=== PATIENT | female | born 1960 ===

== ENCOUNTER 2017-03-06 01:03 | Observation (INO) | payer OTHER ==
--- NOTE | 2017-03-06 02:36 | ED PDOC ---
HPI: Chest Pain Time Seen by Provider: 03/06/17 01:05 Chief Complaint (Nursing): Chest Pain Chief Complaint (Provider): Chest Pain History Per: Patient History/Exam Limitations: no limitations Onset/Duration Of Symptoms: Days (> 1 week) Current Symptoms Are (Timing): Still Present Additional Complaint(s): Rhona Schaefer is a 56-year-old female with a past medical history of hypertension , who presents complaining of intermittent chest pain for over 1 week. No fever , cough, or vomiting. Also reports left thigh pain. Patient denies history of DVTs. No associated injury or fall. Patient states she usually takes aspirin when she has chest pain, but tonight pain was more intense prompting ED visit. PMD: Dr. Cy Richardson Past Medical History Reviewed: Historical Data, Nursing Documentation, Vital Signs Vital Signs: Last Vital Signs Temp 97.5 F L 03/06/17 15:36 Pulse 68 03/06/17 15:36 Resp 20 03/06/17 15:36 BP 112/64 03/06/17 15:36 Pulse Ox 99 03/06/17 15:36 - Medical History PMH: HTN - Surgical History Other surgeries: D & C - Family History Family History: States: Unknown Family Hx - Social History Current smoker - smoking cessation education provided: No Alcohol: None Drugs: Denies - Home Medications Home Medications: Ambulatory Orders Medication Instructions Recorded Aspirin [Adult Aspirin Regimen] 81 mg PO DAILY #30 tablet. 03/06/17 - Allergies Allergies/Adverse Reactions: Allergies Allergy/AdvReac Type Severity Reaction Status Date / Time No Known Allergies Allergy Verified 03/06/17 01:19 Review of Systems ROS Statement: Except As Marked, All Systems Reviewed And Found Negative Constitutional: Negative for: Fever Cardiovascular: Positive for: Chest Pain Respiratory: Negative for: Cough Gastrointestinal: Negative for: Vomiting Musculoskeletal: Positive for: Leg Pain (left thigh) Physical Exam - Reviewed Nursing Documentation Reviewed: Yes Vital Signs Reviewed: Yes - Physical Exam Appears: Positive for: Non-toxic, No Acute Distress Head Exam: Positive for: ATRAUMATIC, NORMAL INSPECTION, NORMOCEPHALIC Skin: Positive for: Normal Color, Warm, Dry Eye Exam: Positive for: EOMI, Normal appearance, PERRL Neck: Positive for: Normal, Painless ROM Cardiovascular/Chest: Positive for: Regular Rate, Rhythm, Chest Non Tender. Negative for: Murmur Respiratory: Positive for: Normal Breath Sounds. Negative for: Accessory Muscle Use, Respiratory Distress Pulses-Radial (L): 2+ Pulses-Radial (R): 2+ Gastrointestinal/Abdominal: Positive for: Normal Exam, Soft. Negative for: Tenderness Extremity: Positive for: Normal ROM. Negative for: Calf Tenderness, Deformity Neurologic/Psych: Positive for: Alert, Oriented (x3) - Laboratory Results Result Diagrams: 03/06/17 02:15 03/06/17 02:15 - ECG O2 Sat by Pulse Oximetry: 100 (RA) Pulse Ox Interpretation: Normal Medical Decision Making Medical Decision Making: Time: 02:19 chest pain Initial Plan: --CMP --CBC w/ differential --Troponin I --D dimer --Chest X-ray --Reevaluation Labs reviewed, no significant abnormalities. Troponin is negative. D dimer is elevated, 605. Patient continuing to complain of chest pain. Time: 4:47 --Aspirin 325 mg PO Patient will be hospitalized as observation for chest pain. Discussed with hospitalist on-call, Dr. Velásquez, who accepts patient. Scribe Attestation: Documented by Melissa Peres, acting as a scribe for Vineet Jiménez MD Provider Scribe Attestation: All medical record entries made by the Scribe were at my direction and personally dictated by me. I have reviewed the chart and agree that the record accurately reflects my personal performance of the history, physical exam, medical decision making, and the department course for this patient. I have also personally directed, reviewed, and agree with the discharge instructions and disposition. Disposition - Clinical Impression Clinical Impression: Acute chest pain - Patient ED Disposition Is Patient to be Admitted: Yes Counseled Patient/Family Regarding: Studies Performed - Disposition Disposition: Transfer of Care (admitted) Disposition Time: 03:45 Condition: STABLE - Pt Status Changed To: Hospital Disposition Of: Observation
[2017-03-06 03:57] LABS: BASO % 0.8 % (0.0-2.0); EOS # 0.2 K/uL (0.0-0.7); EOS % 4.4 % (0.0-4.0); HEMOGLOBIN 11.8 g/dL (12.0-16.0); LYMPH % 40.4 % (20.0-40.0); MEAN CELL VOLUME 80.8 fl (81.0-99.0); MEAN CORPUSCULAR HEMOGLOBIN 26.6 pg (27.0-31.0); MEAN CORPUSCULAR HGB CONC 32.9 g/dL (33.0-37.0); MEAN PLATELET VOLUME 10.5 fl (7.2-11.7); MONO # 0.2 K/uL (0.0-0.8); MONO % 4.5 % (0.0-10.0); NEUT # 2.5 K/uL (1.8-7.0); NEUT % 49.9 % (50.0-75.0); RBC 4.45 Mil/uL (3.80-5.20); RED CELL DISTRIBUTION WIDTH 14.1 % (11.5-14.5)
[2017-03-06 04:11] LABS: ALB/GLOB RATIO 1.2 (1.0-2.1); ALBUMIN 4.4 g/dL (3.5-5.0); ALT/SGPT 37 U/L (9-52); AST/SGOT 28 U/L (14-36); BLOOD UREA NITROGEN 13 mg/dl (7-17); CALCIUM 9.6 mg/dL (8.4-10.2); GFR AFRICAN-AMERICAN > 60; GFR NON-AFRICAN AMERICAN > 60
--- NOTE | 2017-03-06 04:55 | CP.PCM.HP ---
History of Present Illness - History of Present Illness History of Present Illness: PMD: Dr. Cy Richardson Chief Complaint: chest Pain The patient was seen and examined in the ED HPI: 56 years old female with hx of pain to the left lower extremity for years comes with a 2 weeks hx of intermittent, localized left chest pain which increases with exertion climbing stairs, and is present most days after work, and is associated with SOB, palpitation,tiredness and weakness. Some relief with Aspirin, but not on this occasion. No fever, nausea, vomits nor diaphoresis. PMH: Chronic pain to the left lower extremity; Chronic back pain PSH: Tubal Ligation; D&C SH: No Smoking of cigarettes; No illegal drug use; No ETOH use; Live in same house with ; works drying hair FH: States: no known family hx Allergies: NKDA Medication: ASA Present on Admission - Present on Admission Any Indicators Present on Admission: No History of DVT/PE: No History of Uncontrolled Diabetes: No Urinary Catheter: No Decubitus Ulcer Present: No Review of Systems - Constitutional Constitutional: Headache. absent: Anorexia, Chills, Fever, Frequent Falls - EENT Eyes: Requires Corrective Lenses. absent: Diplopia, Floaters, Sees Flashes Ears: absent: Decreased Hearing, Ear Discharge, Tinnitus Nose/Mouth/Throat: absent: Epistaxis, Nasal Congestion - Cardiovascular Cardiovascular: Chest Pain, Chest Pain with Activity, Dyspnea, Palpitations. absent: Edema - Respiratory Respiratory: Cough, Dyspnea. absent: Wheezing, Stridor, Chest Congestion - Gastrointestinal Gastrointestinal: absent: Constipation, Diarrhea, Nausea, Vomiting - Genitourinary Genitourinary: absent: Dysuria, Flank Pain, Hematuria, Urinary Frequency - Musculoskeletal Additional comments: Pain to left lower extremity Pain to the whole back - Integumentary Integumentary: absent: Pruritus, Rash, Sores, Striae, Swelling - Neurological Neurological: Dizziness, Headaches, Weakness. absent: Confusion, Focal Weakness - Psychiatric Psychiatric: absent: Anxiety, Depression, Panic Attacks - Endocrine Endocrine: absent: Palpitations, Polydipsia, Polyphagia, Polyuria - Hematologic/Lymphatic Hematologic: absent: Easy Bleeding, Easy Bruising Past Patient History - Past Medical History & Family History Past Medical History?: No - Past Social History Smoking Status: Never Smoked Chewing Tobacco Use: No Cigar Use: No Alcohol: None Drugs: Denies Home Situation {Lives}: With Family - CARDIAC Hx Hypertension: Yes - PULMONARY Hx Respiratory Disorders: No - NEUROLOGICAL Hx Neurological Disorder: No - HEENT Hx HEENT Problems: No - RENAL Hx Chronic Kidney Disease: No - ENDOCRINE/METABOLIC Hx Endocrine Disorders: No - HEMATOLOGICAL/ONCOLOGICAL Hx Blood Disorders: No - INTEGUMENTARY Hx Dermatological Problems: No - MUSCULOSKELETAL/RHEUMATOLOGICAL Hx Back Pain: Yes Other/Comment: left leg and thigh pain. - GASTROINTESTINAL Hx Gastrointestinal Disorders: No - GENITOURINARY/GYNECOLOGICAL Hx Genitourinary Disorders: No - PSYCHIATRIC Hx Psychophysiologic Disorder: No Hx Substance Use: No - SURGICAL HISTORY Hx Surgeries: Yes Hx Dilation and Curettage: Yes Hx Tubal Ligation: Yes - ANESTHESIA Hx Anesthesia: Yes Hx Anesthesia Reactions: No Meds Allergies/Adverse Reactions: Allergies Allergy/AdvReac Type Severity Reaction Status Date / Time No Known Allergies Allergy Verified 03/06/17 01:19 Physical Exam - Constitutional Appears: No Acute Distress - Head Exam Head Exam: ATRAUMATIC, NORMAL INSPECTION, NORMOCEPHALIC - Eye Exam Eye Exam: EOMI, Normal appearance Pupil Exam: NORMAL ACCOMODATION, PERRL - ENT Exam ENT Exam: Mucous Membranes Moist, Normal Exam, Normal External Ear Exam, Normal Oropharynx - Neck Exam Neck exam: Positive for: Full Rom, Normal Inspection. Negative for: Lymphadenopathy, Tenderness - Respiratory Exam Respiratory Exam: Clear to Auscultation Bilateral. absent: Rales, Rhonchi, Wheezes - Cardiovascular Exam Cardiovascular Exam: REGULAR RHYTHM, RRR, +S1, +S2. absent: Gallop - GI/Abdominal Exam GI & Abdominal Exam: Normal Bowel Sounds, Soft. absent: Mass, Organomegaly, Tenderness - Rectal Exam Rectal Exam: Deferred - Extremities Exam Extremities exam: Positive for: full ROM, normal inspection. Negative for: calf tenderness, pedal edema Additional comments: left ankle tenderness, no pain to the calf nor thigh muscle - Back Exam Back exam: NORMAL INSPECTION. absent: CVA tenderness (L), CVA tenderness (R) Additional comments: Pain to lower back on percussion - Neurological Exam Neurological exam: Alert, CN II-XII Intact, Oriented x3, Reflexes Normal - Psychiatric Exam Psychiatric exam: Normal Affect, Normal Mood - Skin Skin Exam: Dry, Intact, Normal Color, Warm Results - Vital Signs Recent Vital Signs: Last Vital Signs Temp 98.2 F 03/06/17 01:19 Pulse 69 03/06/17 01:19 Resp 16 03/06/17 01:19 BP 140/63 03/06/17 01:19 Pulse Ox 100 03/06/17 04:52 - Labs Result Diagrams: 03/06/17 02:15 03/06/17 02:15 Labs: Laboratory Results - last 24 hr 03/06/17 03/06/17 02:15 02:15 WBC 5.0 RBC 4.45 Hgb 11.8 L Hct 35.9 MCV 80.8 L MCH 26.6 L MCHC 32.9 L RDW 14.1 Plt Count 179 MPV 10.5 Neut % (Auto) 49.9 L Lymph % (Auto) 40.4 H [place] % (Auto) 4.5 Eos % (Auto) 4.4 H Baso % (Auto) 0.8 Neut # 2.5 Lymph # 2.0 [place] # 0.2 Eos # 0.2 Baso # 0.0 Sodium 144 Potassium 3.7 Chloride 104 Carbon Dioxide 26 Anion Gap 18 BUN 13 Creatinine 0.6 L Est GFR ( Amer) > 60 Est GFR (Non-Af Amer) > 60 Random Glucose 99 Calcium 9.6 Total Bilirubin 0.2 AST 28 ALT 37 Alkaline Phosphatase 100 Troponin I < 0.0120 Total Protein 8.1 Albumin 4.4 Globulin 3.7 Albumin/Globulin Ratio 1.2 - EKG Data EKG comments: NSR 62/min No sign of ischemia - Imaging and Cardiology Chest x-ray Status: Image reviewed by me Additional comment: no infiltrate Assessment & Plan - Assessment and Plan (Free Text) Assessment: #. Chest pain #. Elevated D Dimer #. Musculo-skeletal pain Plan: 56 years old female with hx of pain to the left lower extremity for years comes with a 2 weeks hx of intermittent, localized left chest pain which increases with exertion climbing stairs, and is present most days after work, and is associated with SOB, palpitation,tiredness and weakness. #. Chest pain with elevated D Dimer r/o Pulmonary Embolism vs ACS If negative consider musculo-skeletal cause - consult Dr Ley cardiology - Serial Troponin - serial EKG - ECHO - Follow CTA chest - Lipid profile - Tylenol for Pain - ASA #. Musculo-skeletal pain. Back pain and pain at the left lower extremity - Duplex ultrasound of the left lower extremity to r/o DVT - pain management #. DVT prophylaxis with Lovenox #. Code Status: Full - Date & Time Date: 03/06/17 Time: 04:55
[2017-03-06] MEDS ORDERED: Iodixanol 320 MG/ML 100 ML BOTTLE IV ONE (07:06)
[2017-03-06] MEDS ORDERED: Sodium Chloride 0.9% 50 ML IV ONE (07:06)
--- NOTE | 2017-03-06 08:09 | CARD ---
APPROVED REPORT EKG Measurement Heart [id number] <Conclusion> Normal sinus rhythm Normal ECG
[2017-03-06] MEDS ORDERED: Enoxaparin 40 mg Syringe SC SCH (09:00)
--- NOTE | 2017-03-06 09:12 | CT ---
EXAM: CT Angiography Chest With Intravenous Contrast EXAM DATE/TIME: 03/06/2017 5:45 AM CLINICAL HISTORY: 56 years old, female; Signs and symptoms; Other: Elevated d dimer TECHNIQUE: Axial computed tomographic angiography images of the chest with intravenous contrast using pulmonary embolism protocol. All CT scans at this facility use one or more dose reduction techniques, viz.: automated exposure control; ma/kV adjustment per patient size (including targeted exams where dose is matched to indication; i.e. head); or iterative reconstruction technique. MIP reconstructed images were created and reviewed. Coronal and sagittal reformatted images were created and reviewed. CONTRAST: 99 mL of [id number] administered intravenously. COMPARISON: No relevant prior studies available. FINDINGS: Pulmonary arteries: No evidence of pulmonary embolism. Aorta: No thoracic aortic aneurysm or dissection. Lungs: Mild dependent changes in both lower lobes. No mass. Pleural space: Unremarkable. No significant effusion. No pneumothorax. Heart: Unremarkable. No cardiomegaly. No significant pericardial effusion. No evidence of RV dysfunction. Bones/joints: No acute fracture. Soft tissues: Unremarkable. Lymph nodes: No enlarged lymph nodes. IMPRESSION: No evidence of pulmonary embolism.
--- NOTE | 2017-03-06 10:12 | US ---
PROCEDURE: Duplex ultrasound of the left lower extremity arteries. HISTORY: Pain to the left lower extremity COMPARISON: None available. TECHNIQUE: Grayscale and duplex Doppler evaluation of the left common femoral, superficial femoral, popliteal, posterior tibial and dorsalis pedis arteries was performed.. FINDINGS: COMMON FEMORAL ARTERY: Patent. Maximal flow velocity of 127.7 cm/s. SUPERFICIAL FEMORAL ARTERY: 1. Proximal: Patent. Maximal flow velocity of 119.6 cm/s. 2. Mid: Patent. Maximal flow velocity of 106.6 cm/s. 3. Distal: Patent. Maximal flow velocity of 81.3 cm/s. POPLITEAL ARTERY:Patent. Maximal flow velocity of 103.6 cm/s. ANTERIOR TIBIAL ARTERY: Patent. Maximal flow velocity of 68.0 cm/s. POSTERIOR TIBIAL ARTERY: Patent. Maximal flow velocity of 68.0 cm/s. DORSALIS PEDIS ARTERY: Patent. Maximal flow velocity of 35.1 cm/s. OTHER FINDINGS: None. IMPRESSION: Normal Duplex Doppler of the left lower extremity arteries.
--- NOTE | 2017-03-06 10:49 | CP.PCM.DIS ---
Provider - Provider Date of Admission: 03/06/17 04:47 Attending physician: Ravi Velásquez Primary care physician: Cy Richardson MD Consults: cardiology consult Time Spent in preparation of Discharge (in minutes): 15 Hospital Course - Lab Results Lab Results: Most Recent Lab Values WBC 5.0 K/uL (4.8-10.8) 03/06/17 02:15 RBC 4.45 Mil/uL (3.80-5.20) 03/06/17 02:15 Hgb 11.8 g/dL (12.0-16.0) L 03/06/17 02:15 Hct 35.9 % (34.0-47.0) 03/06/17 02:15 MCV 80.8 fl (81.0-99.0) L 03/06/17 02:15 MCH 26.6 pg (27.0-31.0) L 03/06/17 02:15 MCHC 32.9 g/dL (33.0-37.0) L 03/06/17 02:15 RDW 14.1 % (11.5-14.5) 03/06/17 02:15 Plt Count 179 K/uL (130-400) 03/06/17 02:15 MPV 10.5 fl (7.2-11.7) 03/06/17 02:15 Neut % (Auto) 49.9 % (50.0-75.0) L 03/06/17 02:15 Lymph % (Auto) 40.4 % (20.0-40.0) H 03/06/17 02:15 [place] % (Auto) 4.5 % (0.0-10.0) 03/06/17 02:15 Eos % (Auto) 4.4 % (0.0-4.0) H 03/06/17 02:15 Baso % (Auto) 0.8 % (0.0-2.0) 03/06/17 02:15 Neut # 2.5 K/uL (1.8-7.0) 03/06/17 02:15 Lymph # 2.0 K/uL (1.0-4.3) 03/06/17 02:15 [place] # 0.2 K/uL (0.0-0.8) 03/06/17 02:15 Eos # 0.2 K/uL (0.0-0.7) 03/06/17 02:15 Baso # 0.0 K/uL (0.0-0.2) 03/06/17 02:15 D-Dimer, Quantitative 605 ng/mlDDU (0-230) H 03/06/17 02:55 Sodium 144 mmol/l (132-148) 03/06/17 02:15 Potassium 3.7 MMOL/L (3.6-5.0) 03/06/17 02:15 Chloride 104 mmol/L (98-107) 03/06/17 02:15 Carbon Dioxide 26 mmol/L (22-30) 03/06/17 02:15 Anion Gap 18 (10-20) 03/06/17 02:15 BUN 13 mg/dl (7-17) 03/06/17 02:15 Creatinine 0.6 mg/dl (0.7-1.2) L 03/06/17 02:15 Est GFR ( Amer) > 60 03/06/17 02:15 Est GFR (Non-Af Amer) > 60 03/06/17 02:15 Random Glucose 99 mg/dL (65-105) 03/06/17 02:15 Calcium 9.6 mg/dL (8.4-10.2) 03/06/17 02:15 Total Bilirubin 0.2 mg/dl (0.2-1.3) 03/06/17 02:15 AST 28 U/L (14-36) 03/06/17 02:15 ALT 37 U/L (9-52) 03/06/17 02:15 Alkaline Phosphatase 100 U/L (38-126) 03/06/17 02:15 Troponin I < 0.0120 ng/mL (0.00-0.120) 03/06/17 08:15 Total Protein 8.1 G/DL (6.3-8.2) 03/06/17 02:15 Albumin 4.4 g/dL (3.5-5.0) 03/06/17 02:15 Globulin 3.7 gm/dL (2.2-3.9) 03/06/17 02:15 Albumin/Globulin Ratio 1.2 (1.0-2.1) 03/06/17 02:15 - Hospital Course Hospital Course: 56 year old female with hx of pain to the left lower extremity for years came with a 2 weeks hx of intermittent, localized left chest pain which increases with exertion climbing stairs, and is present most days after work, and is associated with SOB, palpitation,tiredness and weakness. Patient was placed under observation in telemetry for chest pain rule out ACS. CT chest with contrast showed no PE Trop x 3 were negative and EKG showed NSR with no St-T wave changes Patient evaluated by public weigher Dr. Ley who recommended stress test. Patient would like to go home and follow up as with stresstest as out patient. At present she is hemodynamically stable, with no CP , no SOB. ACS ruled out. Will discharge patient home Recommended stress test as out patient Follow up with [facility] in 1week ASA 81 mg po daily Dx Chest pain ACS ruled out Discharge Exam - Head Exam Head Exam: ATRAUMATIC, NORMAL INSPECTION, NORMOCEPHALIC - Eye Exam Eye Exam: EOMI, Normal appearance, PERRL Pupil Exam: NORMAL ACCOMODATION - ENT Exam ENT Exam: Mucous Membranes Moist, Normal Exam - Neck Exam Neck exam: Full Rom, Normal Inspection - Respiratory Exam Respiratory Exam: Clear to PA & Lateral, NORMAL BREATHING PATTERN. absent: Rales, Rhonchi, Wheezes - Cardiovascular Exam Cardiovascular Exam: REGULAR RHYTHM, RRR, +S1, +S2. absent: JVD - GI/Abdominal Exam GI & Abdominal Exam: Normal Bowel Sounds, Soft. absent: Distended, Guarding, Rebound, Tenderness - Rectal Exam Rectal Exam: Deferred - Extremities Exam Extremities exam: normal capillary refill, normal inspection, pedal pulses present - Back Exam Back exam: NORMAL INSPECTION - Neurological Exam Neurological exam: Alert, CN II-XII Intact, Oriented x3, Reflexes Normal - Psychiatric Exam Psychiatric exam: Normal Affect, Normal Mood - Skin Skin Exam: Dry, Intact, Normal Color, Warm Discharge Plan - Discharge Medications Prescriptions: Aspirin [Adult Aspirin Regimen] 81 mg PO DAILY #30 tablet.dr - Follow Up Plan Condition: STABLE Disposition: HOME/ ROUTINE Patient education suggested?: Yes Instructions: Noncardiac Chest Pain (DC) Additional Instructions: Stress test as out patient Referrals: Cy Richardson MD [Primary Care Provider] -
--- NOTE | 2017-03-06 11:31 | RAD ---
HISTORY: chest pain COMPARISON: No prior. FINDINGS: LUNGS: No active pulmonary disease. PLEURA: No significant pleural effusion identified, no pneumothorax apparent. CARDIOVASCULAR: Normal. OSSEOUS STRUCTURES: Degenerative changes. VISUALIZED UPPER ABDOMEN: Normal. OTHER FINDINGS: None. IMPRESSION: No active disease.
[2017-03-06 13:24] VITALS: PULSE 68
[2017-03-06 15:36] VITALS: BP 112/64; RESP 20; TEMP 97.5
--- NOTE | 2017-03-06 16:38 | CP.PCM.CON ---
History of Present Illness - History of Present Illness History of Present Illness: 56 y/o female with cc of Chest tightness x 3 weeks. Pt states that she gets left sided chest tightness, usually occurring midday, non-radiating, and not associated with dyspnea. She denies orthopnea, pnd elyse palp LH N/v/d/c or belching. Tightness is not associated with meals or any etiology pt can elucidate. Pt states that she eventually presented to ER as the chest discomfort became more frequent and more severe in nature. Additionally, she was experiencing increased fatigue. Pt denies HTN, DM, DYslipidemia, and tobacco use. She admits to having a brother with significant CAD. Review of Systems - Constitutional Constitutional: Fatigue. absent: Anorexia, Chills, Daytime Sleepiness, Excessive Sweating, Fever, Frequent Falls, Headache, Increased Appetite, Lethargy, Malaise, Night Sweats, Snoring, Sleep Apnea, Weight Gain, Weight Loss , Weakness, Other - EENT Eyes: As Per HPI. absent: Blind Spots, Blurred Vision, Change in Vision, Decreased Night Vision, Diplopia, Discharge, Dry Eye, Exophthalmos, Floaters, Irritation, Itchy Eyes, Loss of Peripheral Vision, Pain, Photophobia, Requires Corrective Lenses, Sees Flashes, Spots in Vision, Tunnel Vision, Other Visual Disturbances, Loss of Vision, Other Ears: As Per HPI. absent: Decreased Hearing, Ear Discharge, Ear Pain, Tinnitus , Abnormal Hearing, Disequilibrium, Dizziness, Other Nose/Mouth/Throat: As Per HPI. absent: Epistaxis, Nasal Congestion, Nasal Discharge, Nasal Obstruction, Nasal Trauma, Nose Pain, Post Nasal Drip, Sinus Pain, Sinus Pressure, Bleeding Gums, Change in Voice, Dental Pain, Dry Mouth, Dysphagia, Halitosis, Hoarsness, Lip Swelling, Mouth Lesions, Mouth Pain, Odynophagia, Sore Throat, Throat Swelling, Tongue Swelling, Facial Pain, Neck Pain, Neck Mass, Other - Breasts Breasts: As Per HPI. absent: Change in Shape, Mass, Pain, Nipple Discharge, Nipple Inversion, Skin Changes, Swelling, Other - Cardiovascular Cardiovascular: As Per HPI, Chest Pain. absent: Acrocyanosis, Chest Pain at Rest, Chest Pain with Activity, Claudication, Diaphoresis, Dyspnea, Dyspnea on Exertion, Edema, Irregular Heart Rhythm, Pain Radiating to Arm/Neck/Jaw, Leg Edema, Leg Ulcers, Lightheadedness, Orthopnea, Palpitations, Paroxysmal Nocturnal Dyspnea, Pedal Edema, Radiating Pain, Rapid Heart Rate, Slow Heart Rate, Syncope, Other - Respiratory Respiratory: As Per HPI. absent: Cough, Dyspnea, Hemoptysis, Dyspnea on Exertion, Wheezing, Snoring, Stridor, Pain on Inspiration, Chest Congestion, Excessive Mucous Production, Change in Mucous Color, Pain with Coughing, Other - Gastrointestinal Gastrointestinal: As Per HPI. absent: Abdominal Pain, Belching, Bloating, Change in Bowel Habits, Change in Stool Character, Coffee Ground Emesis, Constipation, Cramping, Diarrhea, Dyspepsia, Dysphagia, Early Satiety, Excessive Flatus, Fecal Incontinence, Heartburn, Hematemesis, Hematochezia, Loose Stools, Melena, Nausea, Odynophagia, Temesmus, Vomiting, Other - Genitourinary Genitourinary: As Per HPI. absent: Change in Urinary Stream, Difficulty Urinating, Dysuria, Flank Pain, Hematuria, Pyuria, Nocturia, Urinary Incontinence, Urinary Frequency, Urinary Hesitance, Urinary Urgency, Voiding Freq/Small Amts, Freq UTI, Hx Renal/Bladder Calculi, Hx /Renal Surgery, Bladder Distension, Other - Reproductive: Female Reproductive:Female: As Per HPI. absent: Amenorrhea, Amenorrhea/ Control, Currently Menstual, Cycle <21 Days, Cycle >35 Days, Cycle Variable, Menses 1-7 Days, Menses >/= 8 Days, Menses Variable, Cycle > 4 Weeks Between, No Menses for 6 Months, Heavy Menses, Light Menses, Normal Menses, Spotting Between Cycles , S/P Hysterectomy, Menopausal, Post Menopausal, Premenarche, Abnormal Vaginal Bleeding, Dysmenorrhea, Dyspareunia, Genital Lesions, Genital Pruritis, Pelvic Pain, Prolapse Symptoms, Sexual Dysfunction, Vaginal Discharge, Vaginal Dryness , Vaginal Odor, Vaginal Pruritis, Other - Menstruation Menstruation: As Per HPI. absent: Amenorrhea, Amenorrhea/ Control, Currently Menstual, Cycle <21 Days, Cycle >35 Days, Cycle Variable, Menses 1-7 Days, Menses >/= 8 Days, Menses Variable, Cycle > 4 Weeks Between, No Menses for 6 Months, Heavy Menses, Light Menses, Normal Menses, Spotting Between Cycles , S/P Hysterectomy, Menopausal, Post Menopausal, Premenarche, Abnormal Vaginal Bleeding, Dysmenorrhea, Other - Musculoskeletal Musculoskeletal: As Per HPI. absent: Abnormal Gait, Arthralgias, Atrophy, Back Pain, Deformity, Joint Swelling, Limited Range of Motion, Loss of Height, Muscle Cramps, Muscle Weakness, Myalgias, Neck Pain, Numbness, Radiating Pain into Limb, Stiffness, Tingling, Other - Integumentary Integumentary: As Per HPI. absent: Acne, Alopecia, Bleeding Lesions, Change in Hair, Change in Nails, Change in Pigmentation, Changing Lesions, Dry Skin, Erythema, Furuncle, Hirsutism, Lesions, New Lesions, Non-Healing Lesions, Photosensitivity, Pruritus, Rash, Skin Pain, Skin Ulcer, Sores, Striae, Swelling , Unusual Bruising, Wounds, Jaundice, Other - Neurological Neurological: As Per HPI. absent: Abnormal Gait, Abnormal Hearing, Abnormal Movements, Abnormal Speech, Behavioral Changes, Burning Sensations, Confusion, Convulsions, Disequilibrium, Dizziness, Numbness, Focal Weakness, Frequent Falls , Headaches, Lack of Coordination, Loss of Vision, Memory Loss, Paresthesias, Radicular Pain, Restless Legs, Sensory Deficit, Syncope, Tingling, Tremor, Vertigo, Weakness, Other Visual Disturbances, Other - Psychiatric Psychiatric: As Per HPI. absent: Abnormal Sleep Pattern, Anhedonia, Anxiety, Auditory Hallucinations, Behavioral Changes, Change in Appetite, Change in Libido, Confusion, Depression, Difficulty Concentrating, Hallucinations, Homicidal Ideation, Hopelessness, Irritability, Memory Loss, Mood Swings, Panic Attacks, Paranoia, Suicidal Ideation, Visual Hallucinations, Tactile Hallucinations, Other - Endocrine Endocrine: As Per HPI. absent: Change in Body Appearance, Change in Libido, Cold Intolorance, Deepening of Voice, Excessive Sweating, Fatigue, Flushing, Heat Intolorance, Increase in Ring/Shoe/Hat Size, Palpitations, Polydipsia, Polyphagia, Polyuria, Other - Hematologic/Lymphatic Hematologic: As Per HPI. absent: Easy Bleeding, Easy Bruising, Lymphadenopathy , Other Past Patient History - Past Medical History & Family History Past Medical History?: No - Past Social History Smoking Status: Never Smoked Chewing Tobacco Use: No Cigar Use: No Alcohol: None Drugs: Denies - CARDIAC Hx Cardiac Disorders: No Hx Hypertension: Yes - PULMONARY Hx Respiratory Disorders: No - NEUROLOGICAL Hx Neurological Disorder: No - HEENT Hx HEENT Problems: No - RENAL Hx Chronic Kidney Disease: No - ENDOCRINE/METABOLIC Hx Endocrine Disorders: No - HEMATOLOGICAL/ONCOLOGICAL Hx Blood Disorders: No - INTEGUMENTARY Hx Dermatological Problems: No - MUSCULOSKELETAL/RHEUMATOLOGICAL Hx Back Pain: Yes Hx Falls: No Other/Comment: left leg and thigh pain. - GASTROINTESTINAL Hx Gastrointestinal Disorders: No - GENITOURINARY/GYNECOLOGICAL Hx Genitourinary Disorders: No - PSYCHIATRIC Hx Psychophysiologic Disorder: No Hx Substance Use: No - SURGICAL HISTORY Hx Surgeries: Yes Hx Dilation and Curettage: Yes Hx Tubal Ligation: Yes - ANESTHESIA Hx Anesthesia: Yes Hx Anesthesia Reactions: No Hx Malignant Hyperthermia: No Has any member of the family had a problem w/ anesthesia?: No Meds Allergies/Adverse Reactions: Allergies Allergy/AdvReac Type Severity Reaction Status Date / Time No Known Allergies Allergy Verified 03/06/17 01:19 - Medications Medications: Current Medications Aspirin (Aspirin Chewable) 81 mg PO DAILY [facility] Last Admin: 03/06/17 14:51 Dose: 81 mg Enoxaparin Sodium (Lovenox) 40 mg SC DAILY [facility] PRN Reason: Protocol Last Admin: 03/06/17 14:51 Dose: 40 mg Physical Exam - Constitutional Appears: Well - Head Exam Head Exam: ATRAUMATIC, NORMAL INSPECTION, NORMOCEPHALIC - Eye Exam Eye Exam: EOMI, Normal appearance, PERRL. absent: Conjunctival injection, Nystagmus, Periorbital swelling, Periorbital tenderness, Scleral icterus Pupil Exam: NORMAL ACCOMODATION, PERRL. absent: Fixed, Irregular, Miosis, Mydriatic, Unequal - ENT Exam ENT Exam: Mucous Membranes Moist, Normal Exam. absent: Mucous Membranes Dry, Normal External Ear Exam, Normal Oropharynx, TM's Normal Bilaterally - Neck Exam Neck exam: Positive for: Normal Inspection. Negative for: Full Rom, Lymphadenopathy, Meningismus, Tenderness, Thyromegaly - Respiratory Exam Respiratory Exam: Clear to Auscultation Bilateral, NORMAL BREATHING PATTERN. absent: Accessory Muscle Use, Chest Wall Tenderness, Decreased Breath Sounds, Prolonged Expiratory Phase, Rales, Rhonchi, Wheezes, Respiratory Distress, Stridor - Cardiovascular Exam Cardiovascular Exam: REGULAR RHYTHM, +S1, +S2, Systolic Murmur. absent: Bradycardia, Tachycardia, Clicks, Diastolic murmur, Gallop, Irregular Rhythm, JVD, RRR, Rubs, +S4 - GI/Abdominal Exam GI & Abdominal Exam: Normal Bowel Sounds, Soft. absent: Bruit, Diminished Bowel Sounds, Distended, Firm, Guarding, Hernia, Hyperactive Bowel Sounds, Hypoactive Bowel Sounds, Mass, Organomegaly, Pulsatile Mass, Rebound, Rigid, Tenderness - Rectal Exam Rectal Exam: Deferred - Extremities Exam Extremities exam: Positive for: normal inspection. Negative for: calf tenderness, full ROM, joint swelling, normal capillary refill, pedal edema, tenderness, pedal pulses present - Back Exam Back exam: NORMAL INSPECTION. absent: CVA tenderness (L), CVA tenderness (R), FULL ROM, muscle spasm, paraspinal tenderness, rash noted, tenderness, vertebral tenderness - Neurological Exam Neurological exam: Alert, CN II-XII Intact, Normal Gait, Oriented x3, Reflexes Normal - Psychiatric Exam Psychiatric exam: Normal Affect, Normal Mood - Skin Skin Exam: Dry, Intact, Normal Color, Warm Results - Vital Signs Recent Vital Signs: Last Vital Signs Temp 97.5 F L 03/06/17 15:36 Pulse 68 03/06/17 15:36 Resp 20 03/06/17 15:36 BP 112/64 03/06/17 15:36 Pulse Ox 99 03/06/17 15:36 - Labs Result Diagrams: 03/06/17 02:15 03/06/17 02:15 Labs: Laboratory Results - last 24 hr 03/06/17 03/06/17 03/06/17 02:15 02:15 02:55 WBC 5.0 RBC 4.45 Hgb 11.8 L Hct 35.9 MCV 80.8 L MCH 26.6 L MCHC 32.9 L RDW 14.1 Plt Count 179 MPV 10.5 Neut % (Auto) 49.9 L Lymph % (Auto) 40.4 H [place] % (Auto) 4.5 Eos % (Auto) 4.4 H Baso % (Auto) 0.8 Neut # 2.5 Lymph # 2.0 [place] # 0.2 Eos # 0.2 Baso # 0.0 D-Dimer, Quantitative 605 H Sodium 144 Potassium 3.7 Chloride 104 Carbon Dioxide 26 Anion Gap 18 BUN 13 Creatinine 0.6 L Est GFR ( Amer) > 60 Est GFR (Non-Af Amer) > 60 Random Glucose 99 Calcium 9.6 Total Bilirubin 0.2 AST 28 ALT 37 Alkaline Phosphatase 100 Troponin I < 0.0120 Total Protein 8.1 Albumin 4.4 Globulin 3.7 Albumin/Globulin Ratio 1.2 TSH 3rd Generation 03/06/17 03/06/17 03/06/17 08:15 11:06 12:30 WBC RBC Hgb Hct MCV MCH MCHC RDW Plt Count MPV Neut % (Auto) Lymph % (Auto) [place] % (Auto) Eos % (Auto) Baso % (Auto) Neut # Lymph # [place] # Eos # Baso # D-Dimer, Quantitative Sodium Potassium Chloride Carbon Dioxide Anion Gap BUN Creatinine Est GFR ( Amer) Est GFR (Non-Af Amer) Random Glucose Calcium Total Bilirubin AST ALT Alkaline Phosphatase Troponin I < 0.0120 < 0.0120 Total Protein Albumin Globulin Albumin/Globulin Ratio TSH 3rd Generation 2.98 Assessment & Plan (1) Chest pain Status: Acute (2) Family history of ischemic heart disease (IHD) Status: Acute - Assessment and Plan (Free Text) Plan: PT HAS HAD CHEST TIGHTNESS DAILY FOR 3 WEEKS. SHE IS CURRENTLY CP FREE. PT WILL NEED STRESS TESTING SOON. SHE WISHES TO GO HOME. I AM OKAY WITH HAVING STRESS TESTING OUTPT, PT UNDERSTANDS THE IMPORTANCE OF FOLLOWING UP WITH CARDIOLOGY IN CLINIC. I HAVE INSTRUCTED HER TO RETURN TO ER SHOULD HER SYMPTOMS RECUR AND ESPECIALLY IF THEY WORSEN OR BECOME PERSISTENT. PT IS INSTRUCTED TO STAY ON HER DAILY ASA THERAPY.
--- NOTE | 2017-03-06 18:52 | CARD ---
APPROVED REPORT EXAM: Two-dimensional and M-mode echocardiogram with Doppler and color Doppler. Other Information Quality : AverageRhythm : INDICATION Chest Pain 2D DIMENSIONS IVSd1.18 (0.7-1.1cm)LVDd3.92 (3.9-5.9cm) PWd1.03 (0.7-1.1cm)IVSs1.85 (0.8-1.2cm) LVDs2.33 (2.5-4.0cm)FS (%) 40.6 % PWs1.62 (0.8-1.2cm)LVEF (%)72.0 (>50%) Mitral Valve MV E Kwmsekkg71.5cm/sMV E Peak Gr.54mmHgMV DECEL [id number] MV A Wgsspgkx88.0cm/sMV BHC48ysI/A ratio0.9 MVA (PHT)3.70cm2 TDI Lateral E' Peak V7.25cm/sE/Lateral E'9.0E/Medial E'0.0 Tricuspid Valve TR Peak Qnuybqwo679lb/sRAP [id number] Peak Gr.22mmHg [id number] LEFT VENTRICLE The left ventricle is normal size. There is mild concentric left ventricular hypertrophy on the 2D study. The left ventricular function is normal. The left ventricular ejection fraction is - 65-70%. There is normal LV segmental wall motion. Transmitral Doppler flow pattern is Grade I-abnormal relaxation pattern. No left ventricle thrombus noted on this study. There is no ventricular septal defect visualized. There is no left ventricular aneurysm. There is no mass noted in the left ventricle. RIGHT VENTRICLE The right ventricle is normal size. There is normal right ventricular wall thickness. The right ventricular systolic function is normal. ATRIA The left atrium size is normal. There is no thrombus suspected in the left atrium. The right atrium size is normal. The interatrial septum is intact with no evidence for an atrial septal defect. AORTIC VALVE The aortic valve is normal in structure. No aortic regurgitation is present. There is no aortic valvular stenosis. MITRAL VALVE The mitral valve is normal in structure. The mitral valve does not fit strict criteria for prolapse. There is no mitral valve stenosis. Mitral regurgitation is mild. TRICUSPID VALVE The tricuspid valve is normal in structure. There is moderate tricuspid regurgitation. Right ventricular systolic pressure is estimated at 32 mmHg. There is no tricuspid valve prolapse or vegetation. There is no tricuspid valve stenosis. PULMONIC VALVE The pulmonary valve is normal in structure. There is no pulmonic valvular regurgitation. GREAT VESSELS The aortic root is normal in size. The IVC was not well visualized. PERICARDIAL EFFUSION The pericardium appears normal. There is no pleural effusion. <Conclusion> The left ventricle is normal size. There is mild concentric left ventricular hypertrophy on the 2D study. The left ventricular function is normal. The left ventricular ejection fraction is - 65-70%. The left atrium, right ventricle and right atrium are normal in size. The mitral, aortic and tricuspid valves are normal. There is mild mitral regurgitation and moderate tricuspid regurgitation.
[2017-03-07 04:26] VITALS: O2SAT 100
== END 2017-03-06 19:00 | disposition home or self-care (01) ==
LOC: H.ER 01:03 → H.ERHOLD 04:47 → H.TEL 09:56
PROVIDERS: ADMIT Internal Medicine; ATTEND Internal Medicine
DX: R07.89 Other chest pain (principal); I10 Essential (primary) hypertension; R79.1 Abnormal coagulation profile; Z82.49 Family history of ischemic heart disease and other diseases of the circulatory system; Z98.51 Tubal ligation status; G89.29 Other chronic pain; M54.9 Dorsalgia, unspecified; M79.652 Pain in left thigh
CPT/HCPCS: 71045; 71275; 80053; 84443; 84484; 85025; 85378; 93005; 93306; 93926; 99285; G0378; J1650; Q9967

== ENCOUNTER 2017-11-13 21:40 | Observation (INO) | payer SELFPAY ==
[2017-11-13 21:41] VITALS: BMI 28.7
--- NOTE | 2017-11-13 22:01 | ED PDOC ---
HPI:STROKE - Time Time: 21:50 - Historian Historian: Patient - TPA Positive for Contraindication: Yes - Notes: Notes:: Pt reports numbness to R face and numbness to R lateral foot/lower leg since 2- 3 PM yesterday, took ASA at midnight and went to bed. Woke up with same symptoms. Denies difficulty ambulating, EDWARDS, visual changes, weakness. NIHSS Stroke Scale - Date/Time Evaluation Performed Date Performed: 11/13/17 Time Performed: 21:59 When Was NIHSS Performed: 24 hours post onset S/S - How Severe is the Stroke Level of Consciousness: 0=Alert LOC to Questions: 0=Both comments correct LOC to commands: 0=Obeys both correctly Best Gaze: 0=Normal Visual: 0=No visual loss Facial: 0=Normal Motor Arm - Left: 0=No drift Motor Arm - Right: 0=No drift Motor Leg - Left: 0=No drift Motor Leg - Right: 1=Drift before 5 sec Limb Ataxia: 0=Absent Sensory: 1=Mild to moderate loss Best Language: 0=No aphasia Dysarthia: 0=Normal articulation Extinction & Inattention (Neglect): 0=Normal, no object Score: 2 rTPA Inclusion/Exclusion - Refusal of Treatment Patient Refused Treatment: No - Inclusion Criteria for Altepase Patient is 18 years or Older: Yes The Clinical Diagnosis of Ischemic Stroke That is Causing a Potentially Disabling Neurological Deficit: No Time of Onset is Well Established to be Less Than 270 Minute Before Treatment Would Begin: No Risk/Benefit Discussed With Patient/Family Member Present: No Past Medical History Reviewed: Nursing Documentation, Vital Signs Vital Signs: Last Vital Signs Temp 98.7 F 11/13/17 21:45 Pulse 84 11/13/17 21:45 Resp 16 11/13/17 21:45 BP 150/85 11/13/17 21:45 Pulse Ox 100 11/13/17 21:45 - Medical History PMH: No Chronic Diseases, HTN Denies: Chronic Kidney Disease - Family History Family History: States: Unknown Family Hx, CAD (Brother) - Social History Current smoker - smoking cessation education provided: No Alcohol: None - Home Medications Home Medications: Ambulatory Orders Medication Instructions Recorded Aspirin [Aspirin Chewable] 81 mg PO DAILY #30 chew 11/14/17 - Allergies Allergies/Adverse Reactions: Allergies Allergy/AdvReac Type Severity Reaction Status Date / Time No Known Allergies Allergy Verified 11/13/17 21:44 Review of Systems ROS Statement: Except As Marked, All Systems Reviewed And Found Negative Neurological: Positive for: Weakness, Numbness Physical Exam - Reviewed Nursing Documentation Reviewed: Yes Vital Signs Reviewed: Yes - Physical Exam Appears: Positive for: Well, No Acute Distress Head Exam: Positive for: ATRAUMATIC, NORMAL INSPECTION Skin: Positive for: Normal Color, Warm, Dry Eye Exam: Positive for: Normal appearance, EOMI, PERRL Cardiovascular/Chest: Positive for: Regular Rate, Rhythm Respiratory: Positive for: Normal Breath Sounds Gastrointestinal/Abdominal: Positive for: Normal Exam Extremity: Positive for: Normal ROM Neurologic/Psych: Positive for: Alert, radio repair teacher II-XII, Oriented. Negative for: Motor/Sensory Deficits, Aphasia, Facial Droop - Laboratory Results Result Diagrams: 11/14/17 04:20 11/14/17 04:20 - ECG O2 Sat by Pulse Oximetry: 100 - Physician Consult Information Time Consulting Physican Contacted: 23:20 Physician Contacted: Angel Oliva Outcome Of Conversation: Recommends MRI brain, MRA head/neck, ASA. - Critical Care Total Time (In Min): 45 Medical Decision Making Medical Decision Makin yo female with R facial numbness and RLE weakness. - labs - EKG - CXR - CT head - Neuro consult Accession No. : [id number] Patient Name / ID : MAGALYS RIZZO / [id number] Exam Date : 11/13/2017 22:24:06 ( Approved ) Study Comment : Sex / Age : F / 57Y Creator : tess strong Dictator : Dot Tillman MD Straw Hat Plunger Operator : Data Reduction Technician : Dot Tillman MD Approver2 : Report Date : 11/13/2017 22:55:12 My Comment : Date of service: 11/13/2017 HISTORY: Code Stroke COMPARISON: 11/01/2017. FINDINGS: LUNGS: The lungs are well inflated and clear. PLEURA: No significant pleural effusion identified, no pneumothorax apparent. CARDIOVASCULAR: Normal. OSSEOUS STRUCTURES: No significant abnormalities. VISUALIZED UPPER ABDOMEN: Normal. OTHER FINDINGS: None. IMPRESSION: No acute findings. Accession No. : [id number] Patient Name / ID : MAGALYS RIZZO / [id number] Exam Date : 11/13/2017 22:08:07 ( Approved ) Study Comment : Sex / Age : F / 57Y Creator : Preeti Rogers V. Dictator : Preeti Rogers V. Straw Hat Plunger Operator : Data Reduction Technician : Preeti Rogers V. Approver2 : Report Date : 11/14/2017 09:07:29 My Comment : Date of service: 11/13/2017 PROCEDURE: CT HEAD WITHOUT CONTRAST. HISTORY: R facial numbness, RLE weakness COMPARISON: None available. TECHNIQUE: Axial computed tomography images were obtained through the head/brain without intravenous contrast. Radiation dose: Total exam DLP = 790 mGy-cm. This CT exam was performed using one or more of the following dose reduction techniques: Automated exposure control, adjustment of the mA and/or kV according to patient size, and/or use of iterative reconstruction technique. FINDINGS: HEMORRHAGE: No intracranial hemorrhage. BRAIN: No mass effect or edema. No atrophy or chronic microvascular ischemic changes. VENTRICLES: Unremarkable. No hydrocephalus. CALVARIUM: Unremarkable. PARANASAL SINUSES: Unremarkable as visualized. No significant inflammatory changes. MASTOID AIR CELLS: Unremarkable as visualized. No inflammatory changes. OTHER FINDINGS: None. IMPRESSION: Normal CT of the Head. Concordant results (preliminary interpretation) provided by [facility]. Disposition - Clinical Impression Clinical Impression: CVA (cerebral vascular accident) - Patient ED Disposition Is Patient to be Admitted: Yes - Disposition Disposition Time: 23:21 Condition: STABLE - Pt Status Changed To: Hospital Disposition Of: Inpatient - Admit Certification Admit to Inpatient:: After my assessment, the patient will require hospitalization for at least two midnights. This is because of the severity of symptoms shown, intensity of services needed, and/or the medical risk in this patient being treated as an outpatient. - POA Present On Arrival: None
[2017-11-13] MEDS: Sodium Chloride 0.9% 1,000 ML IV SCH (22:17)
[2017-11-13 22:18] LABS: EOS # 0.2 K/uL (0.0-0.7); EOS % 4.5 % (0.0-4.0); HEMOGLOBIN 11.7 g/dL (12.0-16.0); LYMPH # 1.6 K/uL (1.0-4.3); LYMPH % 36.7 % (20.0-40.0); MEAN CELL VOLUME 80.1 fl (81.0-99.0); MEAN CORPUSCULAR HEMOGLOBIN 26.9 pg (27.0-31.0); MEAN CORPUSCULAR HGB CONC 33.6 g/dL (33.0-37.0); MEAN PLATELET VOLUME 9.7 fl (7.2-11.7); MONO # 0.3 K/uL (0.0-0.8); MONO % 5.8 % (0.0-10.0); NEUT # 2.3 K/uL (1.8-7.0); NRBC % 0.1 % (0.0-0.0); RBC 4.33 Mil/uL (3.80-5.20); RED CELL DISTRIBUTION WIDTH 13.9 % (11.5-14.5); WHITE BLOOD COUNT 4.5 K/uL (4.8-10.8)
[2017-11-13 22:22] LABS: SQUAMOUS EPITHIAL 1 /hpf (0-5); URINE BILIRUBIN NEGATIVE (NEGATIVE); URINE BLOOD SMALL (NEGATIVE); URINE CLARITY CLEAR (Clear); URINE COLOR STRAW (YELLOW); URINE GLUCOSE (UA) NEG (Normal); URINE LEUKOCYTE ESTERASE NEG Leu/uL (Negative); URINE PROTEIN NEGATIVE (NEGATIVE); URINE UROBILINOGEN 0.2-1.0 mg/dL (0.2-1.0)
[2017-11-13 22:25] LABS: INR 1.1; PROTHROMBIN TIME 12.1 Seconds (9.8-13.1)
[2017-11-13 22:27] LABS: PARTIAL THROMBOPLASTIN TIME 35.3 Seconds (25.6-37.1)
[2017-11-13 22:28] LABS: ALB/GLOB RATIO 1.1 (1.0-2.1); ALBUMIN 4.2 g/dL (3.5-5.0); ALT/SGPT 26 U/L (9-52); AST/SGOT 28 U/L (14-36); BLOOD UREA NITROGEN 8 mg/dl (7-17); CALCIUM 10.1 mg/dL (8.4-10.2); GFR NON-AFRICAN AMERICAN > 60; HDL CHOLESTEROL 90 MG/DL (30-70)
[2017-11-13 22:38] LABS: LDL CHOLESTEROL 103 mg/dL (0-129)
--- NOTE | 2017-11-14 00:15 | CP.PCM.HP ---
History of Present Illness - History of Present Illness History of Present Illness: CC: right sided numbness HPI: 57 y/o woman w/ no significant pmh presents to the ED w/ right sided numbness. Patient reports numbness started on the right side of her face (eye, nose, and cheek) yesterday afternoon while working. Patient then noticed right sided numbness of the foot up to the leg. Patient reported resolution w/ aspirin that day. then the next day she had the same type of numbness in the similar distribution which also improved w/ aspirin. Patient denies headaches, dizziness, loss of vision, weakness, falls, LOC, chest pain, SOB, abdominal pain , nausea, vomiting, diarrhea, dysuria, urinary/bowel incontinence, or fever. Patient last saw PMD (Dr. Nugent) 2 weeks ago for low back pain. ED course: vitals: 98.7F, 73 beats/min, 107/72 mm Hg, reps 12, O2 100% room air CBC: 4.5>11.7/34.7<176 CMP: 142/4.1, 106/31, 8/0.6, glucose 118, AST 28, ALT 26, alk phos 90 troponins: <0.0120 lipids: trig 49, chol 228, LDL 103, HDL 90 coags: PT 12.1, INR 1.1, aPTT 35.3 UA: small blood, neg glucose, neg ketones, neg nitrate, neg leukocyte esterase CXR: (preliminary) no active disease process CT head: (vrads) no acute intracranial findings ASA 325 mg PO once IVF NS @ 100mL/hr neuro consulted, Dr. Oliva; recommends MRI brain, MRA head/neck, ASA PMD: Dr. Cy uNgent PMH: none meds: none PSH: BTL Fam: father 72 y/o from stroke, brother 65 y/o from [place] SOC: denies smoking, alcohol, and drugs ROS: 12 points assessed and negative unless otherwise reported in HPI Present on Admission - Present on Admission Any Indicators Present on Admission: No History of DVT/PE: No History of Uncontrolled Diabetes: No Urinary Catheter: No Decubitus Ulcer Present: No Review of Systems - Review of Systems All systems: reviewed and no additional remarkable complaints except - Constitutional Constitutional: absent: Chills, Fever, Headache - EENT Eyes: absent: Change in Vision - Cardiovascular Cardiovascular: absent: Chest Pain - Respiratory Respiratory: absent: Dyspnea - Gastrointestinal Gastrointestinal: absent: Abdominal Pain, Diarrhea, Fecal Incontinence, Nausea, Vomiting - Genitourinary Genitourinary: absent: Dysuria, Urinary Incontinence - Reproductive: Female Reproductive:Female: Post Menopausal - Menstruation Menstruation: Post Menopausal - Musculoskeletal Musculoskeletal: As Per HPI - Integumentary Integumentary: absent: Rash - Neurological Neurological: As Per HPI, Numbness. absent: Abnormal Speech, Dizziness, Focal Weakness, Headaches Past Patient History - Past Medical History & Family History Past Medical History?: No - Past Social History Alcohol: None - CARDIAC Hx Hypertension: Yes - PULMONARY Hx Respiratory Disorders: No - NEUROLOGICAL Hx Neurological Disorder: No - HEENT Hx HEENT Problems: No - RENAL Hx Chronic Kidney Disease: No - ENDOCRINE/METABOLIC Hx Endocrine Disorders: No - HEMATOLOGICAL/ONCOLOGICAL Hx Blood Disorders: No - INTEGUMENTARY Hx Dermatological Problems: No - MUSCULOSKELETAL/RHEUMATOLOGICAL Hx Back Pain: Yes Hx Falls: No Other/Comment: left leg and thigh pain. - GASTROINTESTINAL Hx Gastrointestinal Disorders: No - GENITOURINARY/GYNECOLOGICAL Hx Genitourinary Disorders: No - PSYCHIATRIC Hx Psychophysiologic Disorder: No Hx Substance Use: No - SURGICAL HISTORY Hx Surgeries: Yes Hx Dilation and Curettage: Yes Hx Tubal Ligation: Yes - ANESTHESIA Hx Anesthesia: Yes Hx Anesthesia Reactions: No Hx Malignant Hyperthermia: No Meds Allergies/Adverse Reactions: Allergies Allergy/AdvReac Type Severity Reaction Status Date / Time No Known Allergies Allergy Verified 11/13/17 21:44 Physical Exam - Constitutional Appears: Non-toxic, No Acute Distress - Head Exam Head Exam: ATRAUMATIC, NORMAL INSPECTION, NORMOCEPHALIC - Eye Exam Eye Exam: EOMI, Normal appearance, PERRL Pupil Exam: NORMAL ACCOMODATION, PERRL - ENT Exam ENT Exam: Mucous Membranes Moist - Neck Exam Neck exam: Positive for: Full Rom. Negative for: Tenderness - Respiratory Exam Respiratory Exam: Clear to Auscultation Bilateral, NORMAL BREATHING PATTERN. absent: Decreased Breath Sounds, Rales, Rhonchi, Wheezes, Respiratory Distress - Cardiovascular Exam Cardiovascular Exam: REGULAR RHYTHM, RRR. absent: Tachycardia, Systolic Murmur - GI/Abdominal Exam GI & Abdominal Exam: Normal Bowel Sounds, Soft. absent: Distended, Tenderness - Extremities Exam Extremities exam: Positive for: normal inspection. Negative for: calf tenderness, pedal edema, tenderness - Neurological Exam Neurological exam: Alert, CN II-XII Intact, Oriented x3 Additional comments: strength 5/5 bilaterally for UE and LE, no pronator drift or tremor - Skin Skin Exam: Dry, Intact, Normal Color, Warm Results - Vital Signs Recent Vital Signs: Last Vital Signs Temp 98.7 F 11/13/17 21:45 Pulse 73 11/13/17 23:07 Resp 12 11/13/17 23:07 BP 107/72 11/13/17 23:07 Pulse Ox 100 11/13/17 23:20 - Labs Result Diagrams: 11/13/17 22:06 11/13/17 22:06 Labs: Laboratory Results - last 24 hr 11/13/17 11/13/17 11/13/17 22:04 22:06 22:06 WBC 4.5 L RBC 4.33 Hgb 11.7 L Hct 34.7 MCV 80.1 L MCH 26.9 L MCHC 33.6 RDW 13.9 Plt Count 176 MPV 9.7 Neut % (Auto) 52.0 Lymph % (Auto) 36.7 [place] % (Auto) 5.8 Eos % (Auto) 4.5 H Baso % (Auto) 1.0 Neut # (Auto) 2.3 Lymph # (Auto) 1.6 [place] # (Auto) 0.3 Eos # (Auto) 0.2 Baso # (Auto) 0.0 PT INR APTT Sodium 142 Potassium 4.1 Chloride 106 Carbon Dioxide 31 H Anion Gap 9 L BUN 8 Creatinine 0.6 L Est GFR ( Amer) > 60 Est GFR (Non-Af Amer) > 60 POC Glucose (mg/dL) 127 H Random Glucose 118 H Calcium 10.1 Total Bilirubin 0.2 AST 28 ALT 26 Alkaline Phosphatase 90 Troponin I < 0.0120 Total Protein 7.9 Albumin 4.2 Globulin 3.7 Albumin/Globulin Ratio 1.1 Triglycerides 49 Cholesterol 228 H LDL Cholesterol Direct 103 HDL Cholesterol 90 H Urine Color Urine Clarity Urine pH Ur Specific [place] Urine Protein Urine Glucose (UA) Urine Ketones Urine Blood Urine Nitrate Urine Bilirubin Urine Urobilinogen Ur Leukocyte Esterase Urine RBC (Auto) Urine Microscopic WBC Ur Squamous Epith Cells Blood Type Antibody Screen BBK History Checked 11/13/17 11/13/17 11/13/17 22:06 22:06 22:06 WBC RBC Hgb Hct MCV MCH MCHC RDW Plt Count MPV Neut % (Auto) Lymph % (Auto) [place] % (Auto) Eos % (Auto) Baso % (Auto) Neut # (Auto) Lymph # (Auto) [place] # (Auto) Eos # (Auto) Baso # (Auto) PT 12.1 INR 1.1 APTT 35.3 Sodium Potassium Chloride Carbon Dioxide Anion Gap BUN Creatinine Est GFR ( Amer) Est GFR (Non-Af Amer) POC Glucose (mg/dL) Random Glucose Calcium Total Bilirubin AST ALT Alkaline Phosphatase Troponin I Total Protein Albumin Globulin Albumin/Globulin Ratio Triglycerides Cholesterol LDL Cholesterol Direct HDL Cholesterol Urine Color Straw Urine Clarity Clear Urine pH 7.0 Ur Specific [place] 1.011 Urine Protein Negative Urine Glucose (UA) Neg Urine Ketones Negative Urine Blood Small Urine Nitrate Negative Urine Bilirubin Negative Urine Urobilinogen 0.2-1.0 Ur Leukocyte Esterase Neg Urine RBC (Auto) 5 H Urine Microscopic WBC 2 Ur Squamous Epith Cells 1 Blood Type O POSITIVE Antibody Screen Negative BBK History Checked No verified bt Assessment & Plan (1) Right facial numbness Status: Acute - Assessment and Plan (Free Text) Assessment: 57 y/o woman w/ no significant pmh presents to the ED w/ right sided numbness. Plan: Right facial numbness - possible TIA - CN II-XII intact, strength 5/5 bilaterally for UE and LE, no pronator drift or tremor - vitals: 98.7F, 73 beats/min, 107/72 mm Hg, reps 12, O2 100% room air - CBC: 4.5>11.7/34.7<176 - CMP: 142/4.1, 106/31, 8/0.6, glucose 118, AST 28, ALT 26, alk phos 90 - troponins: <0.0120 - lipids: trig 49, chol 228, LDL 103, HDL 90 - coags: PT 12.1, INR 1.1, aPTT 35.3 - UA: small blood, neg glucose, neg ketones, neg nitrate, neg leukocyte esterase - CXR: (preliminary) no active disease process - CT head: (vrads) no acute intracranial findings - ASA 325 mg PO once - IVF NS @ 100mL/hr - neuro consulted, Dr. Oliva; recommends MRI brain, MRA head/neck, ASA - Echo 03/06/2017: EF 65-70%, LV normal size, function, mild LVH, normal left atrium, normal RV, normal right atrium, normal mitral valve, normal aortic valve , normal tricuspid valve, mild mitral regurgitation, mild tricuspid regurgitation - f/u CBC, CMP - f/u troponins x2 - f/u MRI brain, MRA head/neck, carotid dopplers - c/w neuro checks - monitor for acute changes - admit to Tele Prophylactic measures - DVT: lovenox 40 mg SC daily
[2017-11-14 05:25] LABS: BASO % 0.5 % (0.0-2.0); EOS # 0.2 K/uL (0.0-0.7); EOS % 5.5 % (0.0-4.0); HEMOGLOBIN 11.5 g/dL (12.0-16.0); LYMPH # 1.8 K/uL (1.0-4.3); LYMPH % 45.1 % (20.0-40.0); MEAN CELL VOLUME 80.2 fl (81.0-99.0); MEAN CORPUSCULAR HEMOGLOBIN 27.2 pg (27.0-31.0); MEAN CORPUSCULAR HGB CONC 33.9 g/dL (33.0-37.0); MEAN PLATELET VOLUME 9.8 fl (7.2-11.7); MONO # 0.3 K/uL (0.0-0.8); MONO % 6.6 % (0.0-10.0); NEUT # 1.7 K/uL (1.8-7.0); NEUT % 42.3 % (50.0-75.0); NRBC % 0.1 % (0.0-0.0); RBC 4.23 Mil/uL (3.80-5.20); RED CELL DISTRIBUTION WIDTH 14.1 % (11.5-14.5); WHITE BLOOD COUNT 3.9 K/uL (4.8-10.8)
[2017-11-14 05:41] LABS: ALB/GLOB RATIO 1.1 (1.0-2.1); ALBUMIN 3.7 g/dL (3.5-5.0); ALT/SGPT 25 U/L (9-52); AST/SGOT 27 U/L (14-36); BLOOD UREA NITROGEN 7 mg/dl (7-17); CALCIUM 9.4 mg/dL (8.4-10.2); GFR NON-AFRICAN AMERICAN > 60
--- NOTE | 2017-11-14 07:43 | CARD ---
APPROVED REPORT Date of service: 11/13/2017 EKG Measurement Heart [id number] <Conclusion> Normal sinus rhythm Incomplete right bundle branch block Borderline ECG
[2017-11-14] MEDS ORDERED: Enoxaparin 40 mg Syringe SC SCH (09:00)
--- NOTE | 2017-11-14 09:09 | CT ---
Date of service: 11/13/2017 PROCEDURE: CT HEAD WITHOUT CONTRAST. HISTORY: R facial numbness, RLE weakness COMPARISON: None available. TECHNIQUE: Axial computed tomography images were obtained through the head/brain without intravenous contrast. Radiation dose: Total exam DLP = 790 mGy-cm. This CT exam was performed using one or more of the following dose reduction techniques: Automated exposure control, adjustment of the mA and/or kV according to patient size, and/or use of iterative reconstruction technique. FINDINGS: HEMORRHAGE: No intracranial hemorrhage. BRAIN: No mass effect or edema. No atrophy or chronic microvascular ischemic changes. VENTRICLES: Unremarkable. No hydrocephalus. CALVARIUM: Unremarkable. PARANASAL SINUSES: Unremarkable as visualized. No significant inflammatory changes. MASTOID AIR CELLS: Unremarkable as visualized. No inflammatory changes. OTHER FINDINGS: None. IMPRESSION: Normal CT of the Head. Concordant results (preliminary interpretation) provided by [facility].
[2017-11-14] MEDS ORDERED: Gadodiamide 287 MG/ML VIAL (15ML) IV ONE (09:14)
[2017-11-14] MEDS ORDERED: Sodium Chloride 0.9% 50 ML IV ONE (09:14)
--- NOTE | 2017-11-14 10:33 | RAD ---
Date of service: 11/13/2017 HISTORY: Code Stroke COMPARISON: 11/01/2017. FINDINGS: LUNGS: The lungs are well inflated and clear. PLEURA: No significant pleural effusion identified, no pneumothorax apparent. CARDIOVASCULAR: Normal. OSSEOUS STRUCTURES: No significant abnormalities. VISUALIZED UPPER ABDOMEN: Normal. OTHER FINDINGS: None. IMPRESSION: No acute findings.
[2017-11-14] MEDS: Sodium Chloride 0.9% 1,000 ML IV SCH (10:53)
--- NOTE | 2017-11-14 11:09 | MRI ---
Date of service: 11/14/2017 PROCEDURE: MRI BRAIN WITHOUT CONTRAST HISTORY: R facial numbness, RLE weakness COMPARISON: Noncontrast head CT from 11/13/2017. TECHNIQUE: Multiplanar, multisequence MR images of the brain were obtained without intravenous contrast enhancement. FINDINGS: HEMORRHAGE: None DWI: No evidence of an acute or early subacute infarction. BRAIN PARENCHYMA: There are mild chronic microangiopathic changes. There is no mass, mass effect or abnormal extra-axial fluid collection. There is no territorial infarction. The midline sagittal structures are normal. VENTRICLES: There is mild age-related global parenchymal volume loss and proportionate enlargement of the ventricles and cortical sulci. CRANIUM: There is normal bone marrow signal pattern. ORBITS: Grossly unremarkable. PARANASAL SINUSES/MASTOIDS: There is mild mucosal thickening in the paranasal sinuses. VASCULAR SYSTEM: There are normal signal voids in the larger intracranial arteries. OTHER FINDINGS: None. IMPRESSION: No acute intracranial abnormality. Mild chronic microangiopathic changes and mild age-related global parenchymal volume loss.
--- NOTE | 2017-11-14 11:14 | MRI ---
Date of service: 11/14/2017 PROCEDURE: Magnetic Resonance Angiography Brain HISTORY: R/O CVA COMPARISON: None available. TECHNIQUE: 3D time of flight MR angiography of the intracranial arteries was performed. Rotating maximum intensity projection images were generated. FINDINGS: INTERNAL CAROTID ARTERIES: Normal flow related signal. The skull base, petrous, cavernous and supraclinoid segments are bilaterally widely patient. ANTERIOR CEREBRAL ARTERIES: Normal flow related signal. A1 and A2 segments are widely patent. Smaller distal branches unremarkable, as visualized. The right A1 and A2 segments are hypoplastic, an anatomic variant MIDDLE CEREBRAL ARTERIES: Normal flow related signal. M1 and M2 segments are widely patent. Perisylvian branches grossly symmetric. POSTERIOR CIRCULATION: Basilar Artery: Normal flow related signal and widely patent. Distal Vertebral Arteries: The right vertebral artery terminates in posterior inferior cerebellar artery. Normal flow related signal and widely patent. Posterior Cerebral Arteries: Normal flow related signal and widely patent. Posterior Inferior Cerebellar Arteries: Normal flow related signal and widely patent. ANEURYSM/ VASCULAR MALFORMATIONS: None. OTHER FINDINGS: None. IMPRESSION: No evidence of occlusion, definite significant stenosis or saccular aneurysm.
--- NOTE | 2017-11-14 11:22 | MRI ---
Date of service: 11/14/2017 PROCEDURE: MR Angiography of the neck with and without contrast HISTORY: R facial numbness, RLE weakness COMPARISON: Carotid duplex Doppler examination from 11/14/2017. TECHNIQUE: Contrast enhanced and [id number] angiography of the neck was performed. Rotating 3D maximum intensity projection images of the cervical carotid and vertebral arteries were generated. FINDINGS: There is a 4 vessel aortic arch with the left vertebral artery arising from the aortic arch between the left common carotid and left subclavian arteries. RIGHT CAROTID ARTERIES: Common Carotid Artery: Normal. Carotid Bifurcation: Normal. Internal Carotid Artery:Normal. External Carotid Artery (proximal branches): Normal. LEFT CAROTID ARTERIES: Common Carotid Artery: Normal. Carotid Bifurcation: Normal. Internal Carotid Artery:Normal. External Carotid Artery (proximal branches): Normal. VERTEBRAL ARTERIES: Right Vertebral Artery: The right vertebral artery is hypoplastic, an anatomic variant. Left Vertebral Artery: Normal in caliber and widely patent. OTHER FINDINGS: None. IMPRESSION: No evidence of hemodynamically significant stenosis in the internal carotid arteries. The right vertebral artery is hypoplastic, an anatomic variant. Patent dominant left vertebral artery originating from the aortic arch.
[2017-11-14 12:24] VITALS: BP 136/85; PULSE 52; RESP 20; TEMP 97.9
--- NOTE | 2017-11-14 12:37 | US ---
Date of service: 11/14/2017 PROCEDURE: Duplex ultrasound of the carotid and vertebral arteries. HISTORY: possible TIA COMPARISON: None available. TECHNIQUE: Grayscale and duplex Doppler evaluation of the cervical carotid and vertebral arteries were performed. The common carotid, carotid bifurcations and cervical ICA and proximal ECA were evaluated. The vertebral arteries were evaluated for gross patency and direction. FINDINGS: There is mild bilateral intimal thickening. RIGHT CAROTID ARTERIES: Common Carotid Artery: Normal. Maximal flow velocity of 72.5 cm/s. Carotid Bifurcation: Normal. Internal Carotid Artery:Normal. Maximal flow velocity of 72.5 cm/s. External Carotid Artery (proximal branches): Normal. Maximal flow velocity of 82.3 cm/s. ICA/CCA Ratio: 1.0 LEFT CAROTID ARTERIES: Common Carotid Artery: Normal. Maximal flow velocity of 77.6 cm/s. Carotid Bifurcation: Normal. Internal Carotid Artery:Normal. Maximal flow velocity of 78.7 cm/s. External Carotid Artery (proximal branches): Normal. Maximal flow velocity of 61.4 cm/s. ICA/CCA Ratio: 1.0 VERTEBRAL ARTERIES: Right Vertebral Artery: Patent. Antegrade flow. Left Vertebral Artery: Patent. Antegrade flow. OTHER FINDINGS: Note is made of a hypoechoic in the right thyroid lobe. IMPRESSION: No evidence of hemodynamically significant stenosis in the internal carotid arteries by peak systolic velocity criteria. Patent bilateral vertebral arteries with antegrade flow. Note is made of an indeterminate nodule in the right thyroid lobe. A dedicated thyroid ultrasound is recommended for complete evaluation of the thyroid gland
--- NOTE | 2017-11-14 13:44 | CP.PCM.DIS ---
Provider - Provider Date of Admission: 11/13/17 23:21 Attending physician: Cher Morton MD Primary care physician: [facility] clinic. Consults: Dr. Oliva- Neurology Time Spent in preparation of Discharge (in minutes): 30 Diagnosis - Discharge Diagnosis (1) Right facial numbness Status: Acute Hospital Course - Lab Results Lab Results: Most Recent Lab Values WBC 3.9 K/uL (4.8-10.8) L 11/14/17 04:20 RBC 4.23 Mil/uL (3.80-5.20) 11/14/17 04:20 Hgb 11.5 g/dL (12.0-16.0) L 11/14/17 04:20 Hct 34.0 % (34.0-47.0) 11/14/17 04:20 MCV 80.2 fl (81.0-99.0) L 11/14/17 04:20 MCH 27.2 pg (27.0-31.0) 11/14/17 04:20 MCHC 33.9 g/dL (33.0-37.0) 11/14/17 04:20 RDW 14.1 % (11.5-14.5) 11/14/17 04:20 Plt Count 164 K/uL (130-400) 11/14/17 04:20 MPV 9.8 fl (7.2-11.7) 11/14/17 04:20 Neut % (Auto) 42.3 % (50.0-75.0) L 11/14/17 04:20 Lymph % (Auto) 45.1 % (20.0-40.0) H 11/14/17 04:20 [place] % (Auto) 6.6 % (0.0-10.0) 11/14/17 04:20 Eos % (Auto) 5.5 % (0.0-4.0) H 11/14/17 04:20 Baso % (Auto) 0.5 % (0.0-2.0) 11/14/17 04:20 Neut # (Auto) 1.7 K/uL (1.8-7.0) L 11/14/17 04:20 Lymph # (Auto) 1.8 K/uL (1.0-4.3) 11/14/17 04:20 [place] # (Auto) 0.3 K/uL (0.0-0.8) 11/14/17 04:20 Eos # (Auto) 0.2 K/uL (0.0-0.7) 11/14/17 04:20 Baso # (Auto) 0.0 K/uL (0.0-0.2) 11/14/17 04:20 PT 12.1 Seconds (9.8-13.1) 11/13/17 22:06 INR 1.1 11/13/17 22:06 APTT 35.3 Seconds (25.6-37.1) 11/13/17 22:06 Sodium 140 mmol/l (132-148) 11/14/17 04:20 Potassium 4.0 MMOL/L (3.6-5.0) 11/14/17 04:20 Chloride 107 mmol/L (98-107) 11/14/17 04:20 Carbon Dioxide 30 mmol/L (22-30) 11/14/17 04:20 Anion Gap 7 (10-20) L 11/14/17 04:20 BUN 7 mg/dl (7-17) 11/14/17 04:20 Creatinine 0.6 mg/dl (0.7-1.2) L 11/14/17 04:20 Est GFR ( Amer) > 60 11/14/17 04:20 Est GFR (Non-Af Amer) > 60 11/14/17 04:20 POC Glucose (mg/dL) 127 mg/dL (65-110) H 11/13/17 22:04 Random Glucose 92 mg/dL (65-105) 11/14/17 04:20 Calcium 9.4 mg/dL (8.4-10.2) 11/14/17 04:20 Total Bilirubin 0.2 mg/dl (0.2-1.3) 11/14/17 04:20 AST 27 U/L (14-36) 11/14/17 04:20 ALT 25 U/L (9-52) 11/14/17 04:20 Alkaline Phosphatase 87 U/L (38-126) 11/14/17 04:20 Troponin I < 0.0120 ng/mL (0.00-0.120) 11/14/17 08:19 Total Protein 6.9 G/DL (6.3-8.2) 11/14/17 04:20 Albumin 3.7 g/dL (3.5-5.0) 11/14/17 04:20 Globulin 3.2 gm/dL (2.2-3.9) 11/14/17 04:20 Albumin/Globulin Ratio 1.1 (1.0-2.1) 11/14/17 04:20 Triglycerides 49 mg/DL (0-149) 11/13/17 22:06 Cholesterol 228 mg/dL (0-199) H 11/13/17 22:06 LDL Cholesterol Direct 103 mg/dL (0-129) 11/13/17 22:06 HDL Cholesterol 90 MG/DL (30-70) H 11/13/17 22:06 Urine Color Straw (YELLOW) 11/13/17 22:06 Urine Clarity Clear (Clear) 11/13/17 22:06 Urine pH 7.0 (5.0-8.0) 11/13/17 22:06 Ur Specific [place] 1.011 (1.003-1.030) 11/13/17 22:06 Urine Protein Negative mg/dL (NEGATIVE) 11/13/17 22:06 Urine Glucose (UA) Neg mg/dL (Normal) 11/13/17 22:06 Urine Ketones Negative mg/dL (NEGATIVE) 11/13/17 22:06 Urine Blood Small (NEGATIVE) 11/13/17 22:06 Urine Nitrate Negative (NEGATIVE) 11/13/17 22:06 Urine Bilirubin Negative (NEGATIVE) 11/13/17 22:06 Urine Urobilinogen 0.2-1.0 mg/dL (0.2-1.0) 11/13/17 22:06 Ur Leukocyte Esterase Neg [place]/uL (Negative) 11/13/17 22:06 Urine RBC (Auto) 5 /hpf (0-3) H 11/13/17 22:06 Urine Microscopic WBC 2 /hpf (0-5) 11/13/17 22:06 Ur Squamous Epith Cells 1 /hpf (0-5) 11/13/17 22:06 Blood Type O POSITIVE 11/13/17 22:06 Blood Type Confirm O POSITIVE 11/13/17 23:30 Antibody Screen Negative 11/13/17 22:06 BBK History Checked No verified bt 11/13/17 22:06 - Hospital Course Hospital Course: 57 y/o woman w/ no significant pmh presents to the ED w/ right sided numbness. Patient reports numbness started on the right side of her face (eye, nose, and cheek) yesterday afternoon while working. Patient then noticed right sided numbness of the foot up to the leg. Patient reported resolution w/ aspirin that day. then the next day she had the same type of numbness in the similar distribution which also improved w/ aspirin. Patient denies headaches, dizziness, loss of vision, weakness, falls, LOC, chest pain, SOB, abdominal pain , nausea, vomiting, diarrhea, dysuria, urinary/bowel incontinence, or fever. ED course: vitals: 98.7F, 73 beats/min, 107/72 mm Hg, reps 12, O2 100% room air CBC: 4.5>11.7/34.7<176 ; CMP: 142/4.1, 106/31, 8/0.6, glucose 118, AST 28, ALT 26, alk phos 90 troponins: <0.0120 ; lipids: trig 49, chol 228, LDL 103, HDL 90 ; coags: PT 12.1, INR 1.1, aPTT 35.3 UA: small blood, neg glucose, neg ketones, neg nitrate, neg leukocyte esterase CXR: (preliminary) no active disease process CT head: (vrads) no acute intracranial findings Medications given: ASA 325 mg PO once; IVF NS @ 100mL/hr Consults: Neurology, Dr. Oliva; recommended MRI brain, MRA head/neck, ASA Floor course: Patient was vitally stable on the floor. She reported resolution of right sided numbness. She will be following up with Dr. Oliva for further testing for the right sided numbness. - MRI brain, MRA of head and neck were negative for stenosis or intracranial abnormality. - Carotid doppler: Negative for stenosis; Intermediate nodule in the right thyroid lobe found- evaluate as outpatient. Discharge Exam - Head Exam Head Exam: ATRAUMATIC, NORMAL INSPECTION, NORMOCEPHALIC - Eye Exam Eye Exam: Normal appearance Pupil Exam: NORMAL ACCOMODATION, PERRL - ENT Exam ENT Exam: Mucous Membranes Moist - Respiratory Exam Respiratory Exam: Clear to PA & Lateral, NORMAL BREATHING PATTERN. absent: Rales, Rhonchi, Wheezes, Respiratory Distress - Cardiovascular Exam Cardiovascular Exam: REGULAR RHYTHM, RRR, +S1, +S2. absent: Diastolic murmur, JVD, Rubs, Systolic Murmur - GI/Abdominal Exam GI & Abdominal Exam: Normal Bowel Sounds, Soft. absent: Diminished Bowel Sounds , Distended, Firm, Guarding, Hernia, Mass, Rebound, Rigid, Tenderness - Neurological Exam Neurological exam: Alert, Oriented x3 - Psychiatric Exam Psychiatric exam: Normal Affect, Normal Mood - Skin Skin Exam: Dry, Intact, Normal Color, Warm Discharge Plan - Discharge Medications Prescriptions: Aspirin [Aspirin Chewable] 81 mg PO DAILY #30 chew - Follow Up Plan Condition: GOOD Disposition: HOME/ ROUTINE Patient education suggested?: Yes Additional Instructions: Take aspirin 81mg po Daily. Follow up at [facility] in [address] Oliva - Neurology for further workup on facial numbness. Referrals: Angel Oliva MD [Medical Doctor] -
[2017-11-16 13:00] VITALS: O2SAT 100
== END 2017-11-14 15:20 | disposition home or self-care (01) ==
LOC: H.ER 21:40 → INTOOBSV 23:21 → H.ERHOLD 23:21 → H.TEL 11-14 01:21
PROVIDERS: ADMIT Internal Medicine; ATTEND Internal Medicine
DX: R29.810 Facial weakness (principal); R20.0 Anesthesia of skin; M54.5 Low back pain; I10 Essential (primary) hypertension; Z82.3 Family history of stroke
CPT/HCPCS: 36415; 70450; 70544; 70548; 70551; 71045; 80053; 80061; 81003; 82948; 83036; 84484; 85025; 85610; 85730; 86850; 86900; 93005; 93880; 96360; 96361; 97161; 97165; 99285; A9579; G0378; G8978; G8979; G8980; G8987; G8988; G8989; J1650; J7030